=== PATIENT | male | born 1985 | race Caucasian/White ===

== ENCOUNTER 2018-09-15 22:30 | Emergency (ER) | payer OTHER ==
[~2018-09-15] VITALS: Ht 177.8 cm; Wt 72.6 kg
[2018-09-15 22:30] VITALS: BP_SYST 127
[2018-09-15] MEDS ORDERED: IBUPROFEN 600 MG TABLET PO ONE (23:00)
[2018-09-15] MEDS ORDERED: DIPH-TET-PERTUS Vaccine 0.5 ML VIAL (ADACEL) I.M. ONE (23:00)
[2018-09-15] MEDS ORDERED: AMOXICILLIN/CLAVULANATE POTASSIUM 875 MG TABLET PO ONE (23:00)
[2018-09-15 23:54] VITALS: BP_SYST 117
== END 2018-09-15 23:54 | disposition home or self-care (01) ==
LOC: SED 22:30
DX: S01.511A Laceration without foreign body of lip, initial encounter (principal); W54.0XXA Bitten by dog, initial encounter; Y93.89 Activity, other specified; Y92.89 Other specified places as the place of occurrence of the external cause; Y99.8 Other external cause status
CPT/HCPCS: 90715; 99283